=== PATIENT | male | born 1990 | race Caucasian/White ===

== ENCOUNTER 2018-10-01 09:45 | Day surgery (SDC) | payer OTHER, BC ==
[~2018-10-01 09:45] MED LIST: CEFAZOLIN 2 GM/50 ML (PMX) 50 ML IVPB
[2018-10-01] MEDS: SOD CHLORIDE 0.9% 1,000 ML IV (10:53)
[2018-10-01] MEDS ORDERED: GLYCOPYRROLATE 0.4 MG INJ (11:28)
[2018-10-01] MEDS ORDERED: PROPOFOL 20 ML (11:28)
[2018-10-01] MEDS ORDERED: CEFAZOLIN 1 GM INJ (11:28)
[2018-10-01] MEDS ORDERED: SUCCINYLCHOLINE CHLORIDE 100 MG/5 ML SYG IV (11:28)
[2018-10-01] MEDS ORDERED: ROCURONIUM 50 MG INJ (11:28)
[2018-10-01] MEDS ORDERED: NEOSTIGMINE 3 MG/3 ML SYRINGE (11:28)
[2018-10-01] MEDS ORDERED: MIDAZOLAM 1 MG/ML 2 ML INJ (11:29)
[2018-10-01] MEDS ORDERED: ONDANSETRON 4 MG INJ (11:29)
[2018-10-01] MEDS ORDERED: FENTAnyl 50 MCG/ML VIAL ×2 (11:29→11:56)
[2018-10-01] MEDS ORDERED: DEXAMETHASONE 4 MG/ML 5 ML INJ (11:29)
[2018-10-01] MEDS ORDERED: TRIMETHOBENZAMIDE 100 MG/ML VIAL IM (11:30)
[2018-10-01] MEDS ORDERED: HYDROmorphONE 1 MG/5 ML IV SYRINGE IV ×3 (11:30)
[2018-10-01] MEDS ORDERED: FENTAnyl 50 MCG/ML VIAL IV ×3 (11:30)
[2018-10-01] MEDS ORDERED: OXYCODONE/ACETAMINOPHEN (5/325) TAB PO ×2 (11:30)
[2018-10-01] MEDS ORDERED: DIPHENHYDRAMINE 50 MG INJ IV (11:30)
[2018-10-01] MEDS ORDERED: EPHEDrine 25 MG/5 ML SYG IV (11:30)
[2018-10-01] MEDS ORDERED: hydrALAzine 20 MG INJ IV (11:30)
[2018-10-01] MEDS ORDERED: LABETALOL HCL 20MG INJ IV (11:30)
[2018-10-01] MEDS ORDERED: IPRATROPIUM (NEB) 0.5 MG/2.5 ML AMP HHN (11:30)
[2018-10-01] MEDS ORDERED: ALBUTEROL 0.083% (NEB) 2.5 MG/3 ML AMP HHN (11:30)
[2018-10-01] MEDS ORDERED: MIDAZOLAM 1 MG/ML 2 ML INJ IV (11:30)
[2018-10-01] MEDS: BUPIVACAINE 0.25% (MPF) 30 ML INJ (12:34)
[2018-10-01] MEDS: MEPERIDINE 25 MG INJ IV (12:52)
[2018-10-01] MEDS: ONDANSETRON 4 MG INJ IV (12:53)
[2018-10-01] MEDS: HYDROCODONE/APAP (5/325) TAB PO (13:54)
== END 2018-10-01 14:18 | disposition home or self-care (01) ==
LOC: SDS 09:45
DX: L72.0 Epidermal cyst (principal); L92.9 Granulomatous disorder of the skin and subcutaneous tissue, unspecified; Z87.891 Personal history of nicotine dependence
CPT/HCPCS: 14001; 88307